=== PATIENT | male | born 1950 | race Caucasian/White ===

== ENCOUNTER 2017-03-13 20:16 | Emergency (ER) | payer MEDICARE, OTHER, BC ==
[~2017-03-13] VITALS: Ht 190.5 cm; Wt 85.4 kg
[~2017-03-13 20:16] MED LIST: CARB25TA9 PO; CIPR-9 PO
[2017-03-13 21:21] VITALS: BP 137/90; PULSE 91; RESP 20; TEMP 97.9; O2SAT 99
[2017-03-13] MEDS ORDERED: ALEV220T14 PO (22:55)
--- NOTE | 2017-03-13 23:12 | PD ---
HPI Chief Complaint: Flank/Kidney Pain Time Seen by Provider: 23:00 Travel History International Travel<30 days: No Contact w/Intl Traveler<30days: No Traveled to known affect area: No History of Present Illness HPI WHILE AT HOME RESTING AND WATCHING TV, DEVELOPED RLQ PAIN, SHARP, NONRAD, 01/05 ORIG, NOW PAIN FREE,....PREVIOUS H/O LARGE STONE REQUIRING URETERAL STENT AND LITHOTRIPSY BY DR BLANKENSHIP [facility] Past Medical History Blood Disorders: No Heart Rhythm Problems: Yes (RBBB) Cancer: No Cardiovascular Problems: Yes (RBBB) Diminished Hearing: Yes (WEARS HEARING AIDS/[place] BILAT) Endocrine: No Gastrointestinal Disorders: Yes (HEMORRHOIDS) Genitourinary: Yes Immune Disorder: Yes (PARKINSON'S) Implanted Vascular Access Dvce: No Kidney Stones: Yes Musculoskeletal: No Neurologic: Yes (PARKINSON'S) Parkinson's Disease: Yes Psychiatric: No Reproductive: No Respiratory: No Immunizations Current: Yes Influenza Vaccination: Yes Past Surgical History Abdominal Surgery: Yes (APPY) Appendectomy: Yes Neurologic Surgery: Yes (STIMULATOR PLACEMENT FOR PARKINSONS) Tonsillectomy: Yes Other Surgery: Yes (VASECTOMY, HERNIA, HEMORRHOIDECTOMY) Social History Alcohol Use: No Tobacco Use: No Substance Use: No Allergies-Medications (Allergen,Severity, Reaction): Coded Allergies: No Known Allergies (Unverified , 03/13/17) Reported Meds & Prescriptions Reported Meds & Active Scripts Active Ketorolac (Ketorolac Tromethamine) 10 Mg Tab 10 Mg PO Q6HR PRN Zofran Odt (Ondansetron Odt) 4 Mg Tab 4 Mg SL Q6HR PRN Percocet (Oxycodone-Acetaminophen) 10-325 mg Tab 1 Tab PO Q4H PRN Flomax (Tamsulosin HCl) 0.4 Mg Cap 0.4 Mg PO HS Reported Aleve Arthritis (Naproxen Sodium) 220 Mg Tab 220 Mg PO ONCE Carbidopa-Levodopa 25-100 Mg Tab 1.5 Tab PO Q3HR Review of Systems Except as stated in HPI: all other systems reviewed are Neg Gastrointestinal: Positive: Abdominal Pain Genitourinary: Positive: Flank Pain Physical Exam Narrative GENERAL: SKIN: Warm and dry. HEAD: Atraumatic. Normocephalic. EYES: Pupils equal and round. No scleral icterus. No injection or drainage. ENT: No nasal bleeding or discharge. Mucous membranes pink and moist. NECK: Trachea midline. No JVD. CARDIOVASCULAR: Regular rate and rhythm. RESPIRATORY: No accessory muscle use. Clear to auscultation. Breath sounds equal bilaterally. GASTROINTESTINAL: Abdomen soft, non-tender, nondistended. MUSCULOSKELETAL: Extremities without clubbing, cyanosis, or edema. No obvious deformities. NEUROLOGICAL: Awake and alert. No obvious cranial nerve deficits. Motor grossly within normal limits. Five out of 5 muscle strength in the arms and legs. Normal speech. PSYCHIATRIC: Appropriate mood and affect; insight and judgment normal. Data Data Last Documented VS Vital Signs Date Time Temp Pulse Resp B/P (MAP) Pulse Ox O2 Delivery O2 Flow Rate FiO2 03/14/17 02:25 03/14/17 01:50 68 18 98 Room Air 03/13/17 21:21 97.9 Orders Orders Complete Blood Count With Diff (03/13/17 23:03) Comprehensive Metabolic Panel (03/13/17 23:03) Ct Abd/Pel W/O Iv Contrast (03/13/17 23:03) Ecg Monitoring (03/13/17 23:03) Iv Access Insert/Monitor (03/13/17 23:03) Sodium Chloride 0.9% Flush (Ns Flush) (03/13/17 23:15) Sodium Chlor 0.9% 1000 Ml Inj (Ns 1000 M (03/14/17 00:30) Sodium Chlor 0.9% 1000 Ml Inj (Ns 1000 M (03/14/17 00:30) Ketorolac Inj (Toradol Inj) (03/14/17 00:30) Hydromorphone Pf Inj (Dilaudid Pf Inj) (03/14/17 00:30) Ondansetron Inj (Zofran Inj) (03/14/17 00:30) Bladder Scan PRN (03/14/17 02:13) Labs Laboratory Tests Test 03/13/17 23:25 White Blood Count 9.5 TH/MM3 Red Blood Count 4.67 MIL/MM3 Hemoglobin 14.3 GM/DL Hematocrit 42.4 % Mean Corpuscular Volume 90.8 FL Mean Corpuscular Hemoglobin 30.5 PG Mean Corpuscular Hemoglobin Concent 33.6 % Red Cell Distribution Width 11.6 % Platelet Count 203 TH/MM3 Mean Platelet Volume 8.1 FL Neutrophils (%) (Auto) 76.6 % Lymphocytes (%) (Auto) 13.9 % Monocytes (%) (Auto) 8.3 % Eosinophils (%) (Auto) 0.8 % Basophils (%) (Auto) 0.4 % Neutrophils # (Auto) 7.3 TH/MM3 Lymphocytes # (Auto) 1.3 TH/MM3 Monocytes # (Auto) 0.8 TH/MM3 Eosinophils # (Auto) 0.1 TH/MM3 Basophils # (Auto) 0.0 TH/MM3 CBC Comment DIFF FINAL Differential Comment Blood Urea Nitrogen 30 MG/DL Creatinine 1.50 MG/DL Random Glucose 101 MG/DL Total Protein 7.4 GM/DL Albumin 4.2 GM/DL Calcium Level 9.3 MG/DL Alkaline Phosphatase 65 U/L Aspartate Amino Transf (AST/SGOT) 13 U/L Alanine Aminotransferase (ALT/SGPT) 6 U/L Total Bilirubin 0.8 MG/DL Sodium Level 139 MEQ/L Potassium Level 3.7 MEQ/L Chloride Level 105 MEQ/L Carbon Dioxide Level 29.5 MEQ/L Anion Gap 5 MEQ/L Estimat Glomerular Filtration Rate 47 ML/MIN [facility] Medical Decision Making Medical Screen Exam Complete: Yes Emergency Medical Condition: Yes Medical Record Reviewed: Yes Differential Diagnosis PYELO V KIDNEY STONE V DIVERTIC V COLITIS Narrative Course patient has no e/o divertic/colitis or pyelo on cat scan, bloodwork non significant, and ct did confirm a ureteral stone which is of size that should spontaneously pass on their own Diagnosis Primary Impression: URETEROLITHIASIS RIGHT WITH HYDRONEPHROSIS Referrals: [facility] MAKE AN APPOINTMENT TO FOLLOW UP WITH DR BLANKENSHIP, YOUR STONE MAY NOT NEED THEIR INVOLVEMENT BUT THEY SHOULD DECIDE Patient Instructions: General Instructions, Kidney Stones (ED) Scripts Ketorolac (Ketorolac) 10 Mg Tab 10 MG PO Q6HR Y for PAIN, #20 TAB 0 Refills Prov: Aaron Rick MD 03/14/17 Ondansetron Odt (Zofran Odt) 4 Mg Tab 4 MG SL Q6HR Y for Nausea/Vomiting, #30 TAB 0 Refills Prov: Aaron Rick MD 03/14/17 Oxycodone-Acetaminophen (Percocet) 10-325 mg Tab 1 TAB PO Q4H Y for PAIN, #28 TAB 0 Refills Prov: Aaron Rick MD 03/14/17 Tamsulosin (Flomax) 0.4 Mg Cap 0.4 MG PO HS for Manage Prostate Problems, #10 CAP 0 Refills Prov: Aaron Rick MD 03/14/17 Disposition: 01 DISCHARGE HOME Condition: Stable Aaron Rick MD Mar 13, 2017 23:12
[2017-03-13 23:15] VITALS: BP 144/97; PULSE 83; RESP 18; O2SAT 100
[2017-03-13] MEDS ORDERED: SODIUM CHLORIDE 0.9% FLUSH 10 ML FLUSH IVF PRN (23:15)
[2017-03-13 23:35] LABS: AUTOMATED NEUTROPHIL # 7.3 TH/MM3 (1.8-7.7); BASOPHIL % 0.4 % (0.0-2.0); EOSINOPHIL # 0.1 TH/MM3 (0-0.4); EOSINOPHIL % 0.8 % (0.0-4.0); HEMATOCRIT 42.4 % (39.0-51.0); HEMO FLAGS DIFF FINAL; LYMPH % 13.9 % (9.0-44.0); LYMPHOCYTE # 1.3 TH/MM3 (1.0-4.8); MEAN CELL VOLUME 90.8 FL (80.0-100.0); MEAN CORPUSCULAR HEMOGLOBIN 30.5 PG (27.0-34.0); MEAN CORPUSCULAR HGB CONC 33.6 % (32.0-36.0); MONO % 8.3 % (0.0-8.0); NEUT % 76.6 % (16.0-70.0); PLATELET COUNT 203 TH/MM3 (150-450); RED BLOOD COUNT 4.67 MIL/MM3 (4.50-5.90); RED CELL DISTRIBUTION WIDTH 11.6 % (11.6-17.2); WHITE BLOOD COUNT 9.5 TH/MM3 (4.0-11.0)
[2017-03-13 23:44] LABS: CHLORIDE 105 MEQ/L (98-107); POTASSIUM 3.7 MEQ/L (3.5-5.1); SODIUM (NA) 139 MEQ/L (136-145)
[2017-03-13 23:48] LABS: ANION GAP 5 MEQ/L (5-15); BICARBONATE 29.5 MEQ/L (21.0-32.0); BLOOD UREA NITROGEN 30 MG/DL (7-18)
[2017-03-13 23:51] LABS: ALT (GPT) 6 U/L (12-78); AST (GOT) 13 U/L (15-37); GLOMERULAR FILTRATION RATE 47 ML/MIN (>89)
[2017-03-13 23:52] LABS: TOTAL BILIRUBIN ADULT 0.8 MG/DL (0.2-1.0)
[2017-03-13 23:54] LABS: ALKALINE PHOSPHATASE 65 U/L (45-117)
[2017-03-14] MEDS ORDERED: TAMS5CAP PO (00:11)
[2017-03-14] MEDS ORDERED: PERC10TA27 PO (00:11)
--- NOTE | 2017-03-14 00:15 | RADRPT ---
EXAM DATE/TIME: 03/13/2017 23:50 [facility] COMPARISON: No previous studies available for comparison. INDICATIONS : Right flank pain. Prior history of renal calculi. ORAL CONTRAST: No oral contrast ingested. RADIATION DOSE: 12.70 CTDIvol (mGy) MEDICAL HISTORY : Renal calculi. Parkinsons. SURGICAL HISTORY : Appendectomy. Umbilical hernia repair.Neuro stimulator ENCOUNTER: Initial ACUITY: 1 day PAIN SCALE: 8/10 LOCATION: Right flank TECHNIQUE: Volumetric scanning of the abdomen and pelvis was performed. Using automated exposure control and ad justment of the mA and/or kV according to patient size, radiation dose was kept as low as reasonably achievable to obtain optimal diagnostic quality images. DICOM format image data is available electro nically for review and comparison. FINDINGS: LOWER LUNGS: Lung bases are not visualized on this exam LIVER: Visualized portions of the liver show homogeneous density without focal lesion. There is no dilation of the biliary tree. No calcified gallstones. SPLEEN: Visualized portions of intact. PANCREAS: Within normal limits. KIDNEYS: Bilateral renal calculi. These are nonobstructing on the left. There may also be an element of medull wilfrido nephrocalcinosis in the left kidney. The left ureter is normal in caliber throughout its length. On the right, however, there is hydronephrosis and hydroureter due to a large, 5 mm stone in the righ t ureter at the level of the L4 vertebral body. Associated right perinephric stranding. ADRENAL GLANDS: Within normal limits. VASCULAR: There is no aortic aneurysm. BOWEL/MESENTERY: The stomach, small bowel, and colon demonstrate no acute abnormality. There is no free intraperitone al air or fluid. Large amount of stool in the ascending and transverse colon. ABDOMINAL WALL: Within normal limits. RETROPERITONEUM: There is no lymphadenopathy. BLADDER: No wall thickening or mass. REPRODUCTIVE: Prostate is prominent at 5 cm.. INGUINAL: There is no lymphadenopathy or hernia. MUSCULOSKELETAL: Within normal limits for patient age. CONCLUSION: 1. Patient's symptoms are due to a 5 mm ureteric stone on the right at the level of the L4 vertebral body with resulting hydronephrosis and hydroureter. Associated perinephric stranding. 2. Bilateral renal calculi. These are nonobstructing on the left. 3. Possible element of medullary nephrocalcinosis also involving the left kidney. 4. Prominent prostate. Eliezer Cheng MD on March 14, 2017 at 0:07 Board Certified Radiologist. This report was verified electronically.
[2017-03-14] MEDS ORDERED: ZOFR4TAB3 SL (00:23)
[2017-03-14] MEDS ORDERED: KETO10 PO (00:23)
[2017-03-14] MEDS ORDERED: ONDANSETRON HCL 4 MG/2 ML VIAL IV PUSH ONE (00:30)
[2017-03-14] MEDS ORDERED: HYDROmorphone HCL PF 1 MG/ML VIAL IV PUSH ONE (00:30)
[2017-03-14] MEDS ORDERED: KETOROLAC TROMETHAMINE 30 MG/ML (IVP) VIAL IV PUSH ONE (00:30)
[2017-03-14] MEDS ORDERED: SODIUM CHLOR 0.9% 1000 ML INJ 1,000 ML IV ONE ×2 (00:30)
[2017-03-14 01:50] VITALS: BP 145/86; PULSE 68; RESP 18; O2SAT 98
== END 2017-03-14 02:31 | disposition home or self-care (01) ==
LOC: PHED 20:16
DX: N20.1 Calculus of ureter (principal); N13.30 Unspecified hydronephrosis; I45.10 Unspecified right bundle-branch block; Z87.442 Personal history of urinary calculi; G20 Parkinson's disease
CPT/HCPCS: 74176; 80053; 85025; 96361; 96374; 96375; 99285; J1170; J1885; J2405; J7030

== ENCOUNTER 2017-05-25 14:43 | Emergency (ER) | payer MEDICARE, BC ==
[~2017-05-25] VITALS: Ht 188 cm; Wt 85.0 kg
[~2017-05-25 14:43] MED LIST changes: +ALEV220T14 PO; -CIPR-9 PO; +KETO10 PO; +PERC10TA27 PO; +TAMS5CAP PO; +ZOFR4TAB3 SL
[2017-05-25 14:50] VITALS: BP 140/86; PULSE 86; RESP 18; TEMP 97.6; O2SAT 99
[2017-05-25] MEDS ORDERED: DULC10SU3 RECTAL (15:41)
[2017-05-25] MEDS ORDERED: MIRA3350 PO (15:41)
[2017-05-25] MEDS ORDERED: SODIUM CHLOR 0.9% 1000 ML INJ 1,000 ML IV SCH (16:02)
[2017-05-25] MEDS ORDERED: SODIUM CHLORIDE 0.9% FLUSH 10 ML FLUSH IV FLUSH PRN (16:15)
[2017-05-25 16:16] LABS: AUTOMATED NEUTROPHIL # 6.7 TH/MM3 (1.8-7.7); BASOPHIL % 0.1 % (0.0-2.0); EOSINOPHIL # 0.1 TH/MM3 (0-0.4); EOSINOPHIL % 1.3 % (0.0-4.0); HEMATOCRIT 40.9 % (39.0-51.0); HEMO FLAGS DIFF FINAL; LYMPH % 14.2 % (9.0-44.0); LYMPHOCYTE # 1.3 TH/MM3 (1.0-4.8); MEAN CELL VOLUME 91.1 FL (80.0-100.0); MEAN CORPUSCULAR HEMOGLOBIN 30.4 PG (27.0-34.0); MEAN CORPUSCULAR HGB CONC 33.3 % (32.0-36.0); MONO % 9.3 % (0.0-8.0); NEUT % 75.1 % (16.0-70.0); PLATELET COUNT 195 TH/MM3 (150-450); RED BLOOD COUNT 4.49 MIL/MM3 (4.50-5.90); WHITE BLOOD COUNT 8.9 TH/MM3 (4.0-11.0)
[2017-05-25 16:22] VITALS: BP 144/89; PULSE 84; RESP 18; O2SAT 98
[2017-05-25 16:24] VITALS: RESP 18; O2SAT 98
[2017-05-25 16:39] LABS: CHLORIDE 106 MEQ/L (98-107); POTASSIUM 4.4 MEQ/L (3.5-5.1); SODIUM (NA) 142 MEQ/L (136-145)
[2017-05-25 16:43] LABS: ANION GAP 5 MEQ/L (5-15); BICARBONATE 30.6 MEQ/L (21.0-32.0); BLOOD UREA NITROGEN 29 MG/DL (7-18)
[2017-05-25 16:46] LABS: ALT (GPT) 10 U/L (12-78); AST (GOT) 13 U/L (15-37); GLOMERULAR FILTRATION RATE 55 ML/MIN (>89)
[2017-05-25 16:48] LABS: TOTAL BILIRUBIN ADULT 0.9 MG/DL (0.2-1.0)
[2017-05-25 16:49] LABS: ALKALINE PHOSPHATASE 65 U/L (45-117)
--- NOTE | 2017-05-25 16:51 | RADRPT ---
EXAM DATE/TIME: 05/25/2017 16:31 [facility] COMPARISON: CT ABDOMEN & PELVIS W/O CONTRAST, March 13, 2017, 23:50. INDICATIONS : Right abdominal pain radiaitng to the left side. ORAL CONTRAST: No oral contrast ingested. RADIATION DOSE: 13.29 CTDIvol (mGy) MEDICAL HISTORY : Parkinson's. SURGICAL HISTORY : Appendectomy. Stimulator for Parkinson's. ureter stent. ENCOUNTER: Initial ACUITY: 2 days PAIN SCALE: 6/10 LOCATION: Bilateral abdomen TECHNIQUE: Volumetric scanning of the abdomen and pelvis was performed. Using automated exposure control and ad justment of the mA and/or kV according to patient size, radiation dose was kept as low as reasonably achievable to obtain optimal diagnostic quality images. DICOM format image data is available electro nically for review and comparison. FINDINGS: The lung base is are clear. There is no pericardial effusion The liver and gallbladder are unremarkable The spleen, pancreas and adrenals unremarkable Right kidney: There are 2 mm stone midportion right kidney with triangle shaped 6 mm stone middle third right urete r with moderate hydronephrosis. Left kidney: 3 mm calcification midportion left kidney without obstruction 3 mm stone is present in the bladder. Prostate is large measuring 5 cm. CONCLUSION: Obstructing 6 mm stone middle third right ureter with moderate hydronephrosis. This is unchanged from 03/13/17 Prominent prostate with 3 mm stone in the bladder. Toby Garcia MD FACR on May 25, 2017 at 16:45 Board Certified Radiologist. This report was verified electronically.
--- NOTE | 2017-05-25 16:54 | PD ---
HPI Chief Complaint: Abdominal Pain Time Seen by Provider: 15:55 Travel History International Travel<30 days: No Contact w/Intl Traveler<30days: No Traveled to known affect area: No History of Present Illness HPI 66-year-old male came to the emergency room with history of vague bandlike mid abdominal pain going from [id number] for past 3 days. His is here who brought him in. Patient has history of constipation but he also has history of renal calculus. His said that in past 2 months he has had 2 stones. Also he needs MiraLAX every day and Dulcolax suppository every second day to have a bowel movement. Patient has history of Parkinson's. No history of vomiting. He says his appetite has been great. No history of fever or chills. Vital signs were relatively stable. No aggravating or relieving factors identified for the pain. The pain seems colicky nature and comes and goes. PFSH Past Medical History Narrative Medical List of his past medical, surgical, social and family history is reviewed from the nursing note. Blood Disorders: No Heart Rhythm Problems: Yes (RBBB) Cancer: No Cardiovascular Problems: Yes (RBBB) Diminished Hearing: Yes (WEARS HEARING AIDS/[place] BILAT) Endocrine: No Gastrointestinal Disorders: Yes (HEMORRHOIDS) Genitourinary: Yes Immune Disorder: Yes (PARKINSON'S) Implanted Vascular Access Dvce: No Kidney Stones: Yes Musculoskeletal: No Neurologic: Yes (PARKINSON'S) Parkinson's Disease: Yes Psychiatric: No Reproductive: No Respiratory: No Immunizations Current: Yes Influenza Vaccination: Yes Past Surgical History Abdominal Surgery: Yes (APPY) Appendectomy: Yes Genitourinary Surgery: Yes (URETER STENT, LITHOTRIPSY X4) Neurologic Surgery: Yes (STIMULATOR PLACEMENT FOR PARKINSONS) Tonsillectomy: Yes Other Surgery: Yes (VASECTOMY, HERNIA, HEMORRHOIDECTOMY) Social History Alcohol Use: No Tobacco Use: No Substance Use: No Allergies-Medications (Allergen,Severity, Reaction): Coded Allergies: No Known Allergies (Unverified Adverse Reaction, Unknown, 05/25/17) Comments No known drug allergies Reported Meds & Prescriptions Reported Meds & Active Scripts Active Macrobid (Nitrofurantoin Monoh/Nitrofur Macro) 100 Mg Cap 100 Mg PO BID 10 Days Reported Dulcolax Supp (Bisacodyl) 10 Mg Supp 10 Mg RECTAL EVERY OTHER DAY PRN Miralax Powder (Polyethylene Glycol 3350 Powder) 17 Gm Powd 17 Gm PO DAILY Mix and dissolve one measuring cap-ful (17 grams) in water or juice. Carbidopa-Levodopa 25-100 Mg Tab 1.5 Tab PO Q3HR Narrative Medication List of his home medications reviewed from the nursing note. Review of Systems Except as stated in HPI: all other systems reviewed are Neg Gastrointestinal: Positive: Abdominal Pain Physical Exam Narrative GENERAL: Awake, alert, mild distress, parkinsonian symptoms SKIN: Focused skin assessment warm/dry. HEAD: Atraumatic. Normocephalic. EYES: Pupils equal and round. No scleral icterus. No injection or drainage. ENT: No nasal bleeding or discharge. Mucous membranes pink and moist. NECK: Trachea midline. No JVD. CARDIOVASCULAR: Regular rate and rhythm. No murmur appreciated. RESPIRATORY: No accessory muscle use. Clear to auscultation. Breath sounds equal bilaterally. GASTROINTESTINAL: Abdomen soft, non-tender, nondistended. Hepatic and splenic margins not palpable. MUSCULOSKELETAL: No obvious deformities. No clubbing. No cyanosis. No edema. NEUROLOGICAL: Awake and alert. No obvious cranial nerve deficits. Motor grossly within normal limits. Normal speech. PSYCHIATRIC: Appropriate mood and affect; insight and judgment normal. Data Data Last Documented VS Orders Orders Complete Blood Count With Diff (05/25/17 16:02) Comprehensive Metabolic Panel (05/25/17 16:02) Urinalysis - C+S If Indicated (05/25/17 16:02) Ct Abd/Pel W/O Iv Contrast (05/25/17 16:02) Iv Access Insert/Monitor (05/25/17 16:02) Ecg Monitoring (05/25/17 16:02) Oximetry (05/25/17 16:02) Sodium Chlor 0.9% 1000 Ml Inj (Ns 1000 M (05/25/17 16:02) Sodium Chloride 0.9% Flush (Ns Flush) (05/25/17 16:15) Sodium Chlor 0.9% 1000 Ml Inj (Ns 1000 M (05/25/17 17:00) Urine Culture (05/25/17 16:20) Nitrofurantoin Monohyd Macrocr (Macrobid (05/25/17 17:15) Ed Discharge Order (05/25/17 17:20) Radiology Film Requests (05/25/17 ) Labs Laboratory Tests Test 05/25/17 16:00 05/25/17 16:20 White Blood Count 8.9 TH/MM3 Red Blood Count 4.49 MIL/MM3 Hemoglobin 13.6 GM/DL Hematocrit 40.9 % Mean Corpuscular Volume 91.1 FL Mean Corpuscular Hemoglobin 30.4 PG Mean Corpuscular Hemoglobin Concent 33.3 % Red Cell Distribution Width 12.0 % Platelet Count 195 TH/MM3 Mean Platelet Volume 8.5 FL Neutrophils (%) (Auto) 75.1 % Lymphocytes (%) (Auto) 14.2 % Monocytes (%) (Auto) 9.3 % Eosinophils (%) (Auto) 1.3 % Basophils (%) (Auto) 0.1 % Neutrophils # (Auto) 6.7 TH/MM3 Lymphocytes # (Auto) 1.3 TH/MM3 Monocytes # (Auto) 0.8 TH/MM3 Eosinophils # (Auto) 0.1 TH/MM3 Basophils # (Auto) 0.0 TH/MM3 CBC Comment DIFF FINAL Differential Comment Blood Urea Nitrogen 29 MG/DL Creatinine 1.30 MG/DL Random Glucose 95 MG/DL Total Protein 7.4 GM/DL Albumin 4.1 GM/DL Calcium Level 9.0 MG/DL Alkaline Phosphatase 65 U/L Aspartate Amino Transf (AST/SGOT) 13 U/L Alanine Aminotransferase (ALT/SGPT) 10 U/L Total Bilirubin 0.9 MG/DL Sodium Level 142 MEQ/L Potassium Level 4.4 MEQ/L Chloride Level 106 MEQ/L Carbon Dioxide Level 30.6 MEQ/L Anion Gap 5 MEQ/L Estimat Glomerular Filtration Rate 55 ML/MIN Urine Color YELLOW Urine Turbidity CLEAR Urine pH 5.0 Urine Specific [place] 1.021 Urine Protein TRACE mg/dL Urine Glucose (UA) NEG mg/dL Urine Ketones TRACE mg/dL Urine Occult Blood MOD Urine Nitrite NEG Urine Bilirubin NEG Urine Leukocyte Esterase NEG Urine RBC 20-24 /hpf Urine WBC 9-14 /hpf Urine Squamous Epithelial Cells 0-5 /hpf Urine Mucus MANY /lpf Microscopic Urinalysis Comment CULTURE INDICATED MDM Medical Decision Making Medical Screen Exam Complete: Yes Emergency Medical Condition: Yes Medical Record Reviewed: Yes Differential Diagnosis Acute gastritis, acute cholecystitis, renal colic, abdominal pain NOS Narrative Course 5:13 PM blood test results of back and within acceptable limits. UA shows some dehydration. CAT scan shows an unchanged 6 mm midureteral right ureteral stone with moderate hydronephrosis. As per the radiologist this has not changed his physicians since February. Patient was medicated for pain. His UA suggestive of the hematuria and UTI. I have ordered a dose of Macrobid. I discussed with his regarding the CAT scan report and she told me that his urologist Dr. Denson tried to blast the stone few days ago. I have told her that I would give her the CD of the CAT scan so that she can take it with her to the urologist and should she see the urologist as soon as possible. She understands. At this point I'm comfortable discharging the patient. Procedures EKG Prior to Arrival: No Diagnosis Primary Impression: Ureteral stone Additional Impression: BPH (benign prostatic hyperplasia) Qualified Codes: N40.1 - Benign prostatic hyperplasia with lower urinary tract symptoms; R35.0 - Frequency of micturition Referrals: Primary Care Physician Additional Instructions: Please follow-up with his urologist as soon as possible. Call tomorrow the office to make an appointment. Take the CD of the CAT scan that was done here with you when you go to see the urologist. Return to the ER if the condition worsens or any other new concerns. Take the antibiotic as per the prescription direction. Med/Other Pt SpecificInfo: Prescription(s) given Scripts Nitrofurantoin Monohydrate Macrocrystals (Macrobid) 100 Mg Cap 100 MG PO BID for Infection for 10 Days, #20 CAP 0 Refills Prov: Jaxson Phipps MD 05/25/17 Disposition: 01 DISCHARGE HOME Condition: Stable Jaxson Phipps MD May 25, 2017 16:54
[2017-05-25] MEDS ORDERED: SODIUM CHLOR 0.9% 1000 ML INJ 1,000 ML IV ONE (17:00)
[2017-05-25 17:01] LABS: BLOOD, URINE MOD (NEG); GLUCOSE,URINE NEG (NEG); KETONE, URINE TRACE mg/dL (NEG); NITRITE,URINE NEG (NEG)
[2017-05-25 17:08] LABS: URINE COLOR YELLOW (YELLW/STRAW)
[2017-05-25 17:10] LABS: COMMENT (UR) CULTURE INDICATED; CULTURE IF INDICATED CULTURE INDICATED; MUCUS URINE MANY /lpf (OCC); SQUAMOUS EPITHELIAL CELL URINE 0-5 /hpf (0-5)
[2017-05-25] MEDS ORDERED: NITROFURANTOIN MONOHYD MACROCR 100 MG CAP PO ONE (17:15)
[2017-05-25] MEDS ORDERED: MACR100C2 PO (17:20)
[2017-05-25 17:36] VITALS: BP 140/78; PULSE 60; RESP 18; O2SAT 98
== END 2017-05-25 17:54 | disposition home or self-care (01) ==
LOC: PHED 14:43
DX: N20.1 Calculus of ureter (principal); N40.1 Benign prostatic hyperplasia with lower urinary tract symptoms; R35.0 Frequency of micturition; G20 Parkinson's disease; H91.93 Unspecified hearing loss, bilateral; Z87.19 Personal history of other diseases of the digestive system; Z87.442 Personal history of urinary calculi; Z86.79 Personal history of other diseases of the circulatory system; Z87.448 Personal history of other diseases of urinary system
CPT/HCPCS: 74176; 80053; 81001; 85025; 87086; 96360; 99285; J7030